=== PATIENT | male | born 1970 | race Caucasian/White ===

== ENCOUNTER → 2016-09-01 | Outpatient (CLI) | payer OTHER ==
[~2016-09-01] MED LIST: VICODIN 5/500 T1 TAB PO
[2016-09-01 15:18] LABS: LYMPH # 2.1 K/mm3 (0.7-4.5); LYMPH % 23.4 % (10-50)
[2016-09-01 15:25] LABS: HEMOGLOBIN 14.9 g/dL (14.1-18.0)
[2016-09-01 15:39] LABS: BUN 15 mg/dL (7-18)
[2016-09-01 15:43] LABS: GFR (ESTIMATED) 120 ML/MIN (>60)
== END ==
LOC: LAB 14:11
PROVIDERS: Physician Assistant
DX: I10 Essential (primary) hypertension (principal)

== ENCOUNTER → 2016-10-21 | Outpatient (CLI) | payer OTHER ==
--- NOTE | 2016-10-24 14:06 | RADIOLOGY REPORT PS360 ---
History and Indications: 46-year-old with history of GA, obesity, hypertension, hyperlipidemia, tobacco use, family history syncope and fatigue. Procedure: Patient received 0.4 mg of Lexiscan, resting heart rate was 72 bpm, resting blood pressure 168/113, with Lexiscan maximum heart rate achieved was 1 26 bpm which is less than 85% of the maximum] heart rate and a blood pressure was 173/96. With Lexiscan patient complained of mild shortness of breath and headache. Electrocardiogram: Resting echocardiogram showed sinus tachycardia, with Lexiscan there is less than 1.[address] segment depression noted from the baseline EKG. The EKG portion of the Lexiscan is nondiagnostic. Cardiac stress and resting SPECT images: Cardiac stress and the suspect images were obtained using technetium 99 Myoview 9.9 mCi at rest, 31.0 mCi at stress, gated SPECT further analysis of segmental wall motion and calculation of the ejection fraction also done. Cardiac stress and the suspect images show mild decreased tracer activity in the fixed pattern in the inferior and posterobasal wall with decrease contractility on the gated SPECT is likely secondary to prior nontransmural myocardial scarring, no reversible ischemia seen. Computer derived ejection fraction is 53% with mild inferior and posterobasal wall hypokinesis, right ventricle is mildly enlarged with normal contractility. Conclusion: 1. The EKG portion of the Lexiscan is nondiagnostic. 2. Scintigraphic evidence of prior nontransmural myocardial scarring involving the inferior and posterobasal wall without significant reversible ischemia, computer derived ejection fraction is 53% with segmental wall motion abnormality described above, right ventricle is mildly enlarged with normal contractility. 3. Abnormal Lexiscan Myoview study.
== END ==
LOC: RAD 07:30
DX: R07.9 Chest pain, unspecified (principal); I10 Essential (primary) hypertension; E78.5 Hyperlipidemia, unspecified; R73.9 Hyperglycemia, unspecified
CPT/HCPCS: A9502; J2785